=== PATIENT | female | born 1965 | race Caucasian/White ===

== ENCOUNTER 2021-10-06 19:54 | Emergency (ER) | payer OTHER ==
[~2021-10-06] VITALS: Ht 165.1 cm; Wt 77.3 kg
[2021-10-06 20:28] LABS: COVID AG,FIA SOURCE NASOPHARYNGEAL
[2021-10-07 12:23] VITALS: BP 147/76
== END 2021-10-07 12:30 | disposition home or self-care (01) ==
LOC: EMS 19:56
DX: U07.1 COVID-19 (principal); F17.210 Nicotine dependence, cigarettes, uncomplicated
CPT/HCPCS: 87426; 99285; U0003; 99283